=== PATIENT | female | born 1950 | race Caucasian/White ===

== ENCOUNTER → 2016-08-02 | Outpatient (CLI) | payer OTHER ==
--- NOTE | 2016-08-02 13:32 | US ---
Ultrasound Pelvis Complete (Transabdominal and Endovaginal) Including Duplex/Doppler Imaging History: Postmenopausal bleeding, N95.0. Technique: Transabdominal and endovaginal ultrasound images were obtained. Endovaginal images obtaine d for better evaluation of the uterine myometrium and adnexa. Duplex/Doppler imaging of adnexa. Findings: Uterus measures 8 x 5 x 4 cm. Endometrial abnormally heterogenous and thickened up to 15 mm . Posterior right cervical intramural solid isoechoic mass with vascular flow measuring 1.7 x 1.3 x 1 .2 cm. Right ovary measures 2.3 x 2.2 x 1.9 cm. Left ovary measures 3.2 x 2.9 x 1.9 cm. Calcifications noted in both ovaries. No adnexal masses. No significant free fluid in the pelvis. Color Doppler flow to both ovaries without torsion. Impression: 1. Abnormal heterogenous endometrial thickening up to 15 mm. Consider endometrial biopsy for further evaluation. 2. Abnormal nonspecific posterior right-sided cervical vascular solid mass measuring 1.7 x 1.3 x 1.2 cm. Consider biopsy. 3. Calcifications noted in both ovaries without abnormal enlargement or ascites. 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
== END ==
LOC: BRMIMAGING 11:17
PROVIDERS: ATTEND Family Medicine
DX: N95.0 Postmenopausal bleeding (principal); R93.8 Abnormal findings on diagnostic imaging of other specified body structures
CPT/HCPCS: 76856-PO

== ENCOUNTER → 2017-03-10 | Outpatient (CLI) | payer OTHER | LOC: BMCIMAGING 15:15 | PROVIDERS: ATTEND Family Medicine | DX: Z12.31 Encounter for screening mammogram for malignant neoplasm of breast (principal) | CPT/HCPCS: G0202 ==

== ENCOUNTER → 2018-10-09 | Outpatient (CLI) | payer OTHER | LOC: BMCIMAGING 14:11 | PROVIDERS: ATTEND Obstetrics & Gynecology Gynecology | DX: Z12.31 Encounter for screening mammogram for malignant neoplasm of breast (principal); Z80.3 Family history of malignant neoplasm of breast ==